=== PATIENT | female | born 1990 | race Caucasian/White ===

== ENCOUNTER 2017-11-13 06:53 | Emergency (ER) | payer SELFPAY ==
[~2017-11-13] VITALS: Ht 142.2 cm; Wt 72.7 kg
[~2017-11-13 06:53] MED LIST: PHEN-933 PO; SULF-168 PO
[2017-11-13] MEDS ORDERED: IBUPROFEN 600 MG TABLET PO ONE (07:30)
[2017-11-13 09:22] VITALS: BP 104/69
[2017-11-13] MEDS ORDERED: OxyCODONE HCL/ACETAMINOPHEN 5-325 MG TABLET PO ONE (09:30)
== END 2017-11-13 10:01 | disposition home or self-care (01) ==
LOC: EMS 06:54
DX: R07.89 Other chest pain (principal); Z88.5 Allergy status to narcotic agent
CPT/HCPCS: 85379; 93005; 99285

== ENCOUNTER 2018-05-30 10:42 | Emergency (ER) | payer BC ==
[~2018-05-30] VITALS: Ht 142.2 cm; Wt 72.7 kg
[2018-05-30] MEDS ORDERED: GABA-529 PO (10:51)
[2018-05-30] MEDS ORDERED: KETOROLAC TROMETHAMINE 30 MG/ML VIAL IM ONE (12:30)
[2018-05-30 12:49] VITALS: BP 101/67
== END 2018-05-30 13:15 | disposition home or self-care (01) ==
LOC: EMS 10:43
DX: M54.42 Lumbago with sciatica, left side (principal); M54.41 Lumbago with sciatica, right side; E66.9 Obesity, unspecified; Z88.5 Allergy status to narcotic agent; Z68.35 Body mass index [BMI] 35.0-35.9, adult
CPT/HCPCS: 96372; 99283; J1885

== ENCOUNTER 2018-07-25 20:19 | Emergency (ER) | payer BC ==
[~2018-07-25] VITALS: Ht 142.2 cm; Wt 77.7 kg
[~2018-07-25 20:19] MED LIST changes: +GABA-529 PO; -PHEN-933 PO; -SULF-168 PO
[2018-07-25 21:45] LABS: APPEARANCE,URINE CLEAR (CLEAR); BILIRUBIN,URINE NEGATIVE (NEGATIVE); GLUCOSE, URINE (UA) NEGATIVE (NEGATIVE); KETONES,URINE NEGATIVE (NEGATIVE); LEUKOCYTE ESTERASE ,URINE NEGATIVE (NEGATIVE); NITRATE,URINE NEGATIVE (NEGATIVE); OCCULT BLOOD,URINE NEGATIVE (NEGATIVE); PH,URINE 5.5 (5.0-8.0); PROTEIN,URINE NEGATIVE (NEGATIVE); UROBILINOGEN,URINE 0.2 mg/dL (<=1.0)
[2018-07-25 22:12] LABS: SQUAMOUS EPITHELIAL CELL,UR Moderate /LPF (None Seen)
[2018-07-25 22:13] LABS: BACTERIA,URINE Few /HPF (None Seen); RBC,URINE None Seen /HPF (0-2)
[2018-07-25] MEDS ORDERED: PHENAZOPYRIDINE HCL 100 MG TABLET PO ONE (22:30)
[2018-07-25] MEDS ORDERED: CIPROFLOXACIN HCL 250 MG TABLET PO ONE (22:30)
[2018-07-25 22:34] VITALS: BP 120/79
== END 2018-07-25 22:35 | disposition home or self-care (01) ==
LOC: EMS 20:21
DX: N39.0 Urinary tract infection, site not specified (principal); Z88.5 Allergy status to narcotic agent; Z79.899 Other long term (current) drug therapy; Z90.89 Acquired absence of other organs
CPT/HCPCS: 99284

== ENCOUNTER 2018-09-16 18:14 | Emergency (ER) | payer BC ==
[~2018-09-16] VITALS: Ht 142.2 cm; Wt 72.7 kg
[2018-09-16] MEDS ORDERED: PEG 3350/NA SULF,BICARB,CL/KCL 4000 ML SOLUTION PO ONE (20:30)
[2018-09-16] MEDS ORDERED: SODIUM PHOS/SODIUM BIPHOS 133 ML ENEMA PR ONE (20:30)
[2018-09-16 21:03] VITALS: BP 110/75
== END 2018-09-16 21:18 | disposition home or self-care (01) ==
LOC: EMS 18:15
DX: K59.00 Constipation, unspecified (principal); Z90.89 Acquired absence of other organs

== ENCOUNTER 2019-04-21 20:52 | Emergency (ER) | payer BC ==
[~2019-04-21] VITALS: Ht 142.2 cm; Wt 75.0 kg
[2019-04-21 22:31] LABS: APPEARANCE,URINE CLEAR (CLEAR); BILIRUBIN,URINE NEGATIVE (NEGATIVE); GLUCOSE, URINE (UA) NEGATIVE (NEGATIVE); KETONES,URINE NEGATIVE (NEGATIVE); LEUKOCYTE ESTERASE ,URINE NEGATIVE (NEGATIVE); NITRATE,URINE NEGATIVE (NEGATIVE); OCCULT BLOOD,URINE NEGATIVE (NEGATIVE); PH,URINE 6.5 (5.0-8.0); PROTEIN,URINE NEGATIVE (NEGATIVE); UROBILINOGEN,URINE 0.2 mg/dL (<=1.0)
[2019-04-21 23:41] VITALS: BP 104/86
== END 2019-04-22 00:43 | disposition home or self-care (01) ==
LOC: EMS 20:55
DX: N76.0 Acute vaginitis (principal); B96.89 Other specified bacterial agents as the cause of diseases classified elsewhere; Z88.5 Allergy status to narcotic agent

== ENCOUNTER 2023-05-16 10:37 | Emergency (ER) | payer SELFPAY ==
[~2023-05-16] VITALS: Ht 142.2 cm; Wt 77.3 kg
[2023-05-16 10:40] VITALS: BP 110/87; PULSE 82; RESP 16; TEMP 98.4
[2023-05-16] MEDS ORDERED: KETOROLAC TROMETHAMINE 30 MG/ML VIAL IM ONE (13:15)
[2023-05-16] MEDS ORDERED: LIDOCAINE 5% TRANSDERMAL PATCH TD ONE (13:15)
== END 2023-05-16 14:10 | disposition home or self-care (01) ==
LOC: EMS 10:40
DX: S30.0XXA Contusion of lower back and pelvis, initial encounter (principal); Z87.440 Personal history of urinary (tract) infections; Z88.5 Allergy status to narcotic agent; V49.9XXA Car occupant (driver) (passenger) injured in unspecified traffic accident, initial encounter; Y93.89 Activity, other specified; Y92.89 Other specified places as the place of occurrence of the external cause; Y99.8 Other external cause status
CPT/HCPCS: 99283; 81025; 96372; J1885